=== PATIENT | female | born 1985 | race Caucasian/White ===

== ENCOUNTER 2019-11-21 17:17 | Emergency (ER) | payer OTHER ==
[~2019-11-21] VITALS: Ht 177.8 cm; Wt 102.1 kg
[2019-11-21] MEDS ORDERED: Cymbalta20 MG PT (18:18)
[2019-11-21] MEDS ORDERED: BENZ100A PO (18:56)
[2019-11-21] MEDS ORDERED: Prednisone50 MG PO (18:56)
[2019-11-21] MEDS ORDERED: Zithromax250 MG PO (18:56)
[2019-11-21] MEDS ORDERED: ALBU90OI INH (18:56)
== END 2019-11-21 19:39 | disposition home or self-care (01) ==
LOC: ER 17:17
DX: J45.901 Unspecified asthma with (acute) exacerbation (principal); J20.9 Acute bronchitis, unspecified; F32.9 Major depressive disorder, single episode, unspecified; Z87.891 Personal history of nicotine dependence; Z79.899 Other long term (current) drug therapy
CPT/HCPCS: 71046; 94640; 99283-25; J7512

== ENCOUNTER 2020-05-27 19:32 | Emergency (ER) | payer OTHER ==
[~2020-05-27] VITALS: Ht 177.8 cm; Wt 90.7 kg
[~2020-05-27 19:32] MED LIST: ALBU90OI INH; BENZ100A PO; Cymbalta20 MG PT; Prednisone50 MG PO; Zithromax250 MG PO
[2020-05-27] MEDS ORDERED: PRED20 PO (21:02)
[2020-05-27] MEDS ORDERED: MONT10T PO (21:02)
== END 2020-05-27 21:25 | disposition home or self-care (01) ==
LOC: ER 19:32
DX: J45.901 Unspecified asthma with (acute) exacerbation (principal); F41.0 Panic disorder [episodic paroxysmal anxiety]
CPT/HCPCS: 94640; 99284-25; A9270; J7512

== ENCOUNTER 2021-10-08 15:58 | Emergency (ER) | payer OTHER ==
[~2021-10-08] VITALS: Ht 177.8 cm; Wt 81.7 kg
[~2021-10-08 15:58] MED LIST changes: +MONT10T PO; +PRED20 PO
[2021-10-08] MEDS ORDERED: PRED20 PO (17:21)
== END 2021-10-08 17:45 | disposition home or self-care (01) ==
LOC: ER 15:58
DX: M54.50 Low back pain, unspecified (principal); G89.29 Other chronic pain; Z91.09 Other allergy status, other than to drugs and biological substances; Z79.899 Other long term (current) drug therapy; Z79.52 Long term (current) use of systemic steroids; Z87.891 Personal history of nicotine dependence
CPT/HCPCS: J1885

== ENCOUNTER 2021-12-25 21:48 | Emergency (ER) | payer OTHER ==
[~2021-12-25] VITALS: Ht 177.8 cm; Wt 72.6 kg
[2021-12-25] MEDS ORDERED: Prednisone20 MG PO (23:29)
== END 2021-12-25 23:39 | disposition home or self-care (01) ==
LOC: ER 21:48
DX: J45.901 Unspecified asthma with (acute) exacerbation (principal); Z91.048 Other nonmedicinal substance allergy status; Z79.899 Other long term (current) drug therapy; Z87.891 Personal history of nicotine dependence
CPT/HCPCS: 36415; 94640; 94664; 96374; 99284-25; A9270; J2930

== ENCOUNTER 2024-09-24 19:27 | Emergency (ER) | payer OTHER ==
[~2024-09-24] VITALS: Ht 177.8 cm; Wt 81.7 kg
[~2024-09-24 19:27] MED LIST changes: +Prednisone20 MG PO
[2024-09-24 19:47] VITALS: BP 175/110
[2024-09-24] MEDS ORDERED: Ketorolac Tromethamine 30mg Vial IM ONE (19:55)
[2024-09-24] MEDS ORDERED: CLIN300 PO (20:52)
== END 2024-09-24 20:30 | disposition home or self-care (01) ==
LOC: ER 19:27
DX: K04.7 Periapical abscess without sinus (principal)
CPT/HCPCS: 96372; 99282-25; A9270; J1885